=== PATIENT | male | born 1990 | race Caucasian/White ===

== ENCOUNTER 2024-10-21 12:09 | Emergency (ER) | payer OTHER ==
[~2024-10-21] VITALS: Ht 190.5 cm; Wt 132.0 kg
[2024-10-21 12:21] VITALS: TEMP 36.9; O2SAT 99
[2024-10-21] MEDS: LIDOCAINE 5% PATCH TOP SCH (14:11)
[2024-10-21] MEDS: KETOROLAC 15MG/ML VIAL IM ONE (14:12)
[2024-10-21] MEDS ORDERED: CYCL5TAB3 MT (14:53)
[2024-10-21] MEDS ORDERED: LIDO-53 TP (14:53)
[2024-10-21] MEDS ORDERED: NAPR-1176 MT (14:53)
[2024-10-21 16:03] VITALS: BP 133/94; PULSE 83; RESP 16; O2SAT 100
== END 2024-10-21 16:03 | disposition home or self-care (01) ==
LOC: ER 12:09
DX: M54.9 Dorsalgia, unspecified (principal); M54.2 Cervicalgia; M54.6 Pain in thoracic spine
CPT/HCPCS: 99283; 73030; 96372; J1885